=== PATIENT | male | born 1960 | race Caucasian/White ===

== ENCOUNTER 2022-04-17 17:04 | Inpatient (IN) ==
[2022-04-17 19:51] LABS: Basophils % 0.3 %; Eosinophils # 0.1 K/mcL (0.0-0.6); Eosinophils % 0.6 %; Hematocrit 49.7 % (37.5-50.1); Hemoglobin 16.6 g/dL (12.9-16.9); Immature Granulocytes % 0.4 % (0-4); Lymphocytes # 2.7 K/mcL (0.6-4.6); Lymphocytes % 26.3 %; Mean Corpuscular HGB Conc 33.4 g/dL (31.6-35.5); Mean Corpuscular Hemoglobin 34.4 pg (28.0-33.3); Mean Corpuscular Volume 102.9 fL (83.0-100.0); Mean Platelet Volume 8.4 fL (9.4-12.4); Monocytes # 0.7 K/mcL (0.0-1.3); Monocytes % 6.3 %; Neutrophils # 6.9 K/mcL (1.6-8.9); Platelet Count 190 K/mcL (140-400); Red Blood Count 4.83 M/mcL (4.19-5.50); Segmented Neutrophils % 66.1 %; White Blood Count 10.4 K/mcL (4.3-11.1)
[2022-04-17 20:07] LABS: BUN/Creatinine Ratio 10 (6-26); Blood Urea Nitrogen 9 mg/dL (8-23); Calcium 10.8 mg/dL (8.6-10.3); Carbon Dioxide 30 mEq/L (23-29); Chloride 100 mEq/L (98-107); Glucose 107 mg/dL (70-105); Osmolality,Calculated 279 (280-300); Potassium 4.1 mEq/L (3.5-5.1); Sodium 135 mEq/L (136-145)
[2022-04-17] MEDS ORDERED: Iopamidol - 370 500 ML MLS IVP ONE (20:20)
[2022-04-17] MEDS ORDERED: Vancomycin 1,750 MG/517.5 ML IV.SOLN IVPB ONE (20:20)
[2022-04-17] MEDS ORDERED: Tdap (Boostrix) Vaccine 0.5 ML SYRINGE IM ONE (20:27)
[2022-04-17 20:36] LABS: C-Reactive Protein 77 mg/L (Less than 10)
[2022-04-17] MEDS ORDERED: Ondansetron 4 MG/2 ML VIAL IVP PRN (23:05)
[2022-04-17] MEDS ORDERED: Melatonin 3 MG TABLET PO PRN (23:05)
[2022-04-17] MEDS ORDERED: Acetaminophen 325 MG TABLET PO PRN (23:05)
[2022-04-17] MEDS ORDERED: Naloxone 0.4 MG/ML INJ IVP PRN (23:05)
[2022-04-17] MEDS ORDERED: *HR* OxyCODONE Immed Rel 5 MG TABLET PO PRN (23:05)
[2022-04-18] MEDS ORDERED: Morphine Sulfate 2 MG/ML SYRINGE IVP ONE (00:23)
[2022-04-18] MEDS ORDERED: Nicotine 2 MG GUM BC PRN (00:42)
[2022-04-18] MEDS: *HR* HYDROcodone/Acet 5/325 mg TABLET PO PRN (02:19)
[2022-04-18] MEDS ORDERED: Ipratropium/Albuterol Neb 3 ML IH PRN (03:08)
[2022-04-18 04:16] LABS: Basophils % 0.3 %; Eosinophils # 0.1 K/mcL (0.0-0.6); Eosinophils % 0.8 %; Hematocrit 46.9 % (37.5-50.1); Hemoglobin 15.9 g/dL (12.9-16.9); Immature Granulocytes % 0.3 % (0-4); Lymphocytes # 2.4 K/mcL (0.6-4.6); Lymphocytes % 24.9 %; Mean Corpuscular HGB Conc 33.9 g/dL (31.6-35.5); Mean Corpuscular Hemoglobin 34.6 pg (28.0-33.3); Mean Platelet Volume 8.7 fL (9.4-12.4); Monocytes # 0.6 K/mcL (0.0-1.3); Monocytes % 6.4 %; Neutrophils # 6.5 K/mcL (1.6-8.9); Platelet Count 189 K/mcL (140-400); Segmented Neutrophils % 67.3 %; White Blood Count 9.7 K/mcL (4.3-11.1)
[2022-04-18 04:22] LABS: INR 1.2; Prothrombin Time 13.7 Seconds (9.4-12.1)
[2022-04-18 04:25] LABS: Activated Partial Thrombo Time 35.3 Seconds (26.0-36.0)
[2022-04-18 04:37] LABS: Alanine Aminotransferase 16 Units/L (7-52); Albumin 4.2 g/dL (3.5-5.7); Albumin/Globulin Ratio 1.4 (1.1-2.2); Alkaline Phosphatase 137 Units/L (34-104); Aspartate Amino Transferase 14 Units/L (13-39); BUN/Creatinine Ratio 11 (6-26); Bilirubin,Total 0.6 mg/dL (0.3-1.0); Blood Urea Nitrogen 10 mg/dL (8-23); Carbon Dioxide 24 mEq/L (23-29); Chloride 104 mEq/L (98-107); Globulin 3.1 g/dL (2.4-3.5); Glucose 122 mg/dL (70-105); Magnesium 2.1 mg/dL (1.6-2.6); Osmolality,Calculated 280 (280-300); Phosphorous 2.4 mg/dL (2.7-4.5); Potassium 3.8 mEq/L (3.5-5.1); Sodium 135 mEq/L (136-145); Total Protein 7.3 g/dL (6.4-8.9)
[2022-04-18] MEDS ORDERED: *HR* HYDROcodone/Acet 10/325 mg TABLET PO ONE (06:44)
[2022-04-18] MEDS: Lactobacillus 1 EACH CAP.SPRINK PO SCH ×2 (07:58→20:10)
[2022-04-18] MEDS: Nicotine 21 MG PATCH.TD24 TD SCH (07:58)
[2022-04-18] MEDS ORDERED: lisinopriL 10 MG TABLET PO SCH (09:00)
[2022-04-18] MEDS: Vancomycin 1,250 MG/262.5 ML IV.SOLN IVPB SCH ×2 (10:38→20:30)
[2022-04-18] MEDS: cefTRIAXone 1,000 MG in 0.9 % Sodium Chloride 10 ML IVP SCH (14:05)
[2022-04-18] MEDS ORDERED: *HR* HYDROcodone/Acet 10/325 mg TABLET PO PRN (14:36)
[2022-04-18] MEDS: *HR* Rivaroxaban 10 MG TABLET PO SCH (17:34)
[2022-04-18] MEDS: *HR* HYDROcodone/Acet 10/325 mg TABLET PO PRN ×2 (17:35→23:35)
[2022-04-18] MEDS: traZODone 50 MG TABLET PO SCH (20:10)
[2022-04-18] MEDS ORDERED: NON-FORMULARY MEDICATION 1 EACH EACH (Trazodone Hcl 100 MG Tablet) PO SCH (21:00)
[2022-04-19] MEDS: Nicotine 21 MG PATCH.TD24 TD SCH (09:33)
[2022-04-19] MEDS: Lactobacillus 1 EACH CAP.SPRINK PO SCH ×2 (09:35→20:59)
[2022-04-19] MEDS: lisinopriL 5 MG TABLET PO SCH (09:35)
[2022-04-19] MEDS: Venlafaxine XR (24 HR) 150 MG CAP.ER.24H PO SCH (11:13)
[2022-04-19] MEDS: Vancomycin 1,250 MG/262.5 ML IV.SOLN IVPB SCH (11:59)
[2022-04-19] MEDS: *HR* HYDROcodone/Acet 10/325 mg TABLET PO PRN ×2 (13:15→21:09)
[2022-04-19] MEDS: cefTRIAXone 1,000 MG in 0.9 % Sodium Chloride 10 ML IVP SCH (16:05)
[2022-04-19] MEDS: *HR* Rivaroxaban 10 MG TABLET PO SCH (16:07)
[2022-04-19] MEDS: traZODone 50 MG TABLET PO SCH (20:59)
[2022-04-20] MEDS ORDERED: Vancomycin 1,250 MG/262.5 ML IV.SOLN IVPB SCH
[2022-04-20] MEDS: *HR* HYDROcodone/Acet 10/325 mg TABLET PO PRN (05:41)
[2022-04-20 07:33] VITALS: BP 146/99; PULSE 85; TEMP 97.5; O2SAT 93
[2022-04-20] MEDS: lisinopriL 5 MG TABLET PO SCH (09:04)
[2022-04-20] MEDS: Lactobacillus 1 EACH CAP.SPRINK PO SCH (09:04)
[2022-04-20] MEDS: Venlafaxine XR (24 HR) 150 MG CAP.ER.24H PO SCH (09:04)
[2022-04-20] MEDS: Nicotine 21 MG PATCH.TD24 TD SCH (09:08)
[2022-04-20] MEDS ORDERED: Flu Vac QV 22-23 (6MOS UP)/PF 0.5 ML SYRINGE IM ONE (11:36)
[2022-04-20] MEDS: *HR* HYDROcodone/Acet 5/325 mg TABLET PO PRN (11:50)
== END 2022-04-20 12:05 | disposition home or self-care (01) | DRG 603 ==
LOC: EMEROOARM 17:04 → 2ANU 17:04 → SUATTDRO 22:39 → 2ANU 23:41
PROVIDERS: ADMIT Internal Medicine; ATTEND Hospitalist